=== PATIENT | male | born 1970 | race Caucasian/White ===

== ENCOUNTER 2019-08-20 13:56 | Emergency (ER) | payer SELFPAY ==
[2019-08-20 14:36] VITALS: BP 138/86; PULSE 78; RESP 18; TEMP 37; O2SAT 97; BMI 28.5
== END 2019-08-20 16:00 | disposition left against medical advice (07) ==
LOC: ER 14:10
PROVIDERS: Emergency Provider Nurse Practitioner Family
DX: F41.0 Panic disorder [episodic paroxysmal anxiety] (principal); H53.8 Other visual disturbances; R42 Dizziness and giddiness; F43.10 Post-traumatic stress disorder, unspecified; F17.200 Nicotine dependence, unspecified, uncomplicated; Z53.21 Procedure and treatment not carried out due to patient leaving prior to being seen by health care provider
CPT/HCPCS: 99281